=== PATIENT | male | born 1985 | race Caucasian/White ===

== ENCOUNTER 2016-09-14 11:39 | Emergency (ER) | payer OTHER ==
--- NOTE | 2016-09-14 14:13 | DIAGNOSTIC IMAGING REPORT ---
PROCEDURE: XR HAND 3 OR 4 VIEWS - LEFT INDICATION: TRAUMA/INJURY TECHNIQUE: Four views. COMPARISON: None. FINDINGS: Osseous structures, joint spaces, and soft tissues are normal. IMPRESSION: 1. Normal left hand.
--- NOTE | 2016-09-15 02:32 | ED CLINICAL REPORT ---
Clinical Report - Physicians/Mid Levels [facility] [address] [place] [address] 09/14/2016 11:42 Patient: HERMINIA GROSS Time Seen: 13:07 Sep 14 2016; initial documentation. Arrived- By private vehicle. Historian- patient. CPT: ER phys charges level 3 plus (#[id number]). HISTORY OF PRESENT ILLNESS Chief Complaint: Injury to the left middle finger. The injury happened last night. Twisting injury. Occurred at home. ( This occurred last night. ( Pt reports that he dislocated finger last night by getting hand caught between mattress and wall.). He has had swelling, redness and weakness. Put finger back into position.). Patient is experiencing moderate pain. No other injury. REVIEW OF SYSTEMS The patient has had swelling. No tingling, numbness, weakness, foreign body or skin laceration. All systems otherwise negative, except as recorded above. PAST HISTORY Pharyngitis. Muscle Strain, Lower Extremity. Drug Poisoning. Traumatic Brain Injury. Lifestyle / Substance Problems. Abdominal Pain. Substance Abuse. Keratitis. Depression. Immunizations. Chronic Back Pain. Chronic pain. Medications: None. Allergies: None. SOCIAL HISTORY Heavy tobacco smoker (cigarette)- 1 pack per day. Alcohol use. History of drug use: marijuana. ADDITIONAL NOTES The nursing notes have been reviewed. PHYSICAL EXAM Vital Signs: 09/14/2016 11:50 BP: 150/94. HR: 91. RR: 14. O2 saturation: 99%. Temp: 98.2 F. Appearance: Alert. Appears to be in pain. Patient in mild distress. Head: Head atraumatic. Neck: Normal inspection. C-spine non-tender. CVS: Normal heart rate and rhythm. Respiratory: No respiratory distress. Back: No tenderness. Skin: Skin warm. Skin intact. Extremities: Left middle finger: moderate tenderness of the MCP joint; limited movement secondary to pain. Neurovascular intact distally. No erythema, swelling, laceration, abrasion or ecchymosis. No deformity. No subungual hematoma. No wrist injury. Extremities otherwise negative. Neuro, Vascular and Tendons: Vascular status intact. Sensation intact. Motor intact. Tendon function intact. Neuro: Oriented X 3. No motor deficit. No sensory deficit. LABS, X-RAYS, AND EKG X-Rays: Left hand negative. PROGRESS AND PROCEDURES Splint Application: Aluminum-foam splint applied to left middle finger. Splint applied by tech with direct supervision by the ED physician. Reassessed extremity following splint application. Neurovascular intact. Follow-up recommended within 7 days. Patient/family counseled. Disposition: Discharged. Condition: stable. CLINICAL IMPRESSION Left middle finger MCP injury. INSTRUCTIONS Limit use of your left hand until better. Return to work tomorrow, in one day (light duty: wear spint until better.). Warnings: GENERAL WARNINGS: Return or contact your physician immediately if your condition worsens or changes unexpectedly, if not improving as expected, or if other problems arise. Prescription Medications: Hydrocodone/APAP 5mg / 325mg: take 1-2 orally every 6 hours as needed for pain. Dispense ten (10). No refill. Follow-up: Follow up with your doctor in one week. Call for an appointment. Understanding of the discharge instructions verbalized by patient. (Electronically signed by José Manuel Khoury MD 09/14/2016 16:56)
--- NOTE | 2016-09-15 02:32 | ED ORDER SUMMARY ---
..... Patient: MERLY BASILIOTARA HOWELLIC Dar OrderSheet [facility] VisitID: [id number] [address] [place] [address] 30y, M Registration Date/Time: 09/14/2016 ORDER SHEET Weight: 81.6 kg (stated) Allergies: None GENERAL ORDERS: Hand 3 or 4V Left Urgent (12:43 09/14/2016 Efren HURT) (Ack 12:46 KHoerner) (12:54 KHoerner) Splint (UE) (Left) (Metal / foam) (MCP) (13:11 09/14/2016 Efren HURT) (13:14 LNations ER Tech1) MEDICATION ORDERS: IV FLUIDS: ORDER SHEET NOTES: [Electronically signed by Gabby Portillo (13:31 09/14/2016)] [Electronically signed by José Manuel Khoury MD (16:56 09/14/2016)] [Electronically locked/signed by Gabby Portillo (13:31 09/14/2016)]
--- NOTE | 2016-09-15 02:32 | ED CLINICAL REPORT ---
Clinical Report - Physicians/Mid Levels [facility] [address] [place] [address] 09/14/2016 11:42 Patient: HERMINIA GROSS Time Seen: 13:07 Sep 14 2016; initial documentation. Arrived- By private vehicle. Historian- patient. CPT: ER phys charges level 3 plus (#[id number]). HISTORY OF PRESENT ILLNESS Chief Complaint: Injury to the left middle finger. The injury happened last night. Twisting injury. Occurred at home. ( This occurred last night. ( Pt reports that he dislocated finger last night by getting hand caught between mattress and wall.). He has had swelling, redness and weakness. Put finger back into position.). Patient is experiencing moderate pain. No other injury. REVIEW OF SYSTEMS The patient has had swelling. No tingling, numbness, weakness, foreign body or skin laceration. All systems otherwise negative, except as recorded above. PAST HISTORY Pharyngitis. Muscle Strain, Lower Extremity. Drug Poisoning. Traumatic Brain Injury. Lifestyle / Substance Problems. Abdominal Pain. Substance Abuse. Keratitis. Depression. Immunizations. Chronic Back Pain. Chronic pain. Medications: None. Allergies: None. SOCIAL HISTORY Heavy tobacco smoker (cigarette)- 1 pack per day. Alcohol use. History of drug use: marijuana. ADDITIONAL NOTES The nursing notes have been reviewed. PHYSICAL EXAM Vital Signs: 09/14/2016 11:50 BP: 150/94. HR: 91. RR: 14. O2 saturation: 99%. Temp: 98.2 F. Appearance: Alert. Appears to be in pain. Patient in mild distress. Head: Head atraumatic. Neck: Normal inspection. C-spine non-tender. CVS: Normal heart rate and rhythm. Respiratory: No respiratory distress. Back: No tenderness. Skin: Skin warm. Skin intact. Extremities: Left middle finger: moderate tenderness of the MCP joint; limited movement secondary to pain. Neurovascular intact distally. No erythema, swelling, laceration, abrasion or ecchymosis. No deformity. No subungual hematoma. No wrist injury. Extremities otherwise negative. Neuro, Vascular and Tendons: Vascular status intact. Sensation intact. Motor intact. Tendon function intact. Neuro: Oriented X 3. No motor deficit. No sensory deficit. LABS, X-RAYS, AND EKG X-Rays: Left hand negative. PROGRESS AND PROCEDURES Splint Application: Aluminum-foam splint applied to left middle finger. Splint applied by tech with direct supervision by the ED physician. Reassessed extremity following splint application. Neurovascular intact. Follow-up recommended within 7 days. Patient/family counseled. Disposition: Discharged. Condition: stable. CLINICAL IMPRESSION Left middle finger MCP injury. INSTRUCTIONS Limit use of your left hand until better. Return to work tomorrow, in one day (light duty: wear spint until better.). Warnings: GENERAL WARNINGS: Return or contact your physician immediately if your condition worsens or changes unexpectedly, if not improving as expected, or if other problems arise. Prescription Medications: Hydrocodone/APAP 5mg / 325mg: take 1-2 orally every 6 hours as needed for pain. Dispense ten (10). No refill. Follow-up: Follow up with your doctor in one week. Call for an appointment. Understanding of the discharge instructions verbalized by patient. (Electronically signed by José Manuel Khoury MD 09/14/2016 16:56)
--- NOTE | 2016-09-15 02:32 | ED ORDER SUMMARY ---
..... Patient: MERLY BASILIOTARA HOWELLIC Dar OrderSheet [facility] VisitID: [id number] [address] [place] [address] 30y, M Registration Date/Time: 09/14/2016 ORDER SHEET Weight: 81.6 kg (stated) Allergies: None GENERAL ORDERS: Hand 3 or 4V Left Urgent (12:43 09/14/2016 Efren HURT) (Ack 12:46 KHoerner) (12:54 KHoerner) Splint (UE) (Left) (Metal / foam) (MCP) (13:11 09/14/2016 Efren HURT) (13:14 LNations ER Tech1) MEDICATION ORDERS: IV FLUIDS: ORDER SHEET NOTES: [Electronically signed by Gabby Portillo (13:31 09/14/2016)] [Electronically signed by José Manuel Khoury MD (16:56 09/14/2016)] [Electronically locked/signed by Gabby Portillo (13:31 09/14/2016)]
--- NOTE | 2016-09-15 02:32 | ED NURSING NOTES ---
Clinical Report - Nurses [facility] [place] [address] 09/14/2016 11:42 [id number] Triage time 11:47 Sep 14 2016. Acuity: LEVEL 4. Chief Complaint: LEFT UPPER EXTREMITY PAIN and SWELLING. 11:50 09/14/16. Alert. No acute distress. ( Pain at worst 7/10). SEPSIS SCREEN: Sepsis Screen. Negative (no infection suspected/documented). TANG COMA SCORE: [place] Coma Scale: 15- eyes open spontaneously (4); best verbal response- oriented x 4 (5); best motor response- obeys commands (6). --11:51 Gabby Portillo 11:50 09/14/16. BP: 150/94. HR: 91. RR: 14. O2 saturation: 99%. Temp: 98.2 F. Pain level now 3/10. --11:51 Gabby Portillo. Weight: 81.6 kg stated. Height/Length: 76 inches Per Patient. BMI: 21.9. --11:50 Gabby Portillo. Medications None. --11:49 Gabby Portillo. Medication/allergy information source: the patient. --11:51 Gabby Portillo. Allergies None. --11:50 Gabby Portillo. History Arrived by private vehicle. Historian: patient. Unaccompanied. Primary physician ([facility]). Injury occurred. This occurred last night. ( Pt reports that he dislocated finger last night by getting hand caught between mattress and wall.). He has had swelling, redness and weakness. No fever, neck pain, skin rash, itching or numbness. 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 (Pt popped it back in.). PAST MEDICAL HX: Immunizations: up-to-date. SOCIAL HX: Light tobacco smoker (cigarette)- less than 1/2 a pack per day. Occasional alcohol use. History of drug use: marijuana. (every 2-3 days). FALL RISK ASSESSMENT: Fall risk assessment completed. No fall risk identified. NUTRITIONAL RISK ASSESSMENT: The nutritional risk assessment revealed no deficiencies. FUNCTIONAL ASSESSMENT: Functional assessment: no impairments noted. LEARNING NEEDS ASSESSMENT: The learning needs assessment revealed no barriers. SKIN INTEGRITY ASSESSMENT: Skin integrity risk assessment completed. No skin integrity risk identified. --11:51 Gabby Portillo. PROBLEMS: Pharyngitis. Muscle Strain, Lower Extremity. Drug Poisoning. Traumatic Brain Injury. Lifestyle / Substance Problems. Abdominal Pain. Substance Abuse. Keratitis. Depression. Immunizations. Chronic Back Pain. Chronic pain. --11:50 Gabby Portillo. ADDITIONAL SURGERIES: Facial reconstruction. Shoulder Surgery. --11:50 Gabby Portillo. Assessment The patient states feels the same. --11:51 Gabby Portillo. Interventions ID band on patient. --11:51 Gabby Portillo. PHYSICAL ASSESSMENT 11:51 09/14/16. Ambulatory to room. GENERAL / NEURO / PSYCH: Oriented X 4. Alert. Appears in no acute distress. EXTREMITIES: Extremities exhibit normal ROM. Neuro-vascular status intact to the extremity. No upper extremity edema. Left middle finger: tenderness and swelling. SKIN: Skin intact. Skin is warm and dry. --11:51 Gabby Portillo. NURSING PROGRESS NOTES 11:09/14/16. The plan of care for this patient has been created. Extremity elevated. Neuro-vascular extremity check. Reassurance given. Two patient identifiers checked. Call light placed in reach. Side rails up x 1. Bed placed in lowest position. Brakes of bed on. Patient ready for evaluation- chart flagged and ED physician notified. ( Pt states, "it feels like it just didn't set right"). --11:51 Gabby Portillo ( alum. splint to left middle finger, held with coban.). --13:21 Jennie Cuellar ER Tech1. DISPOSITION / DISCHARGE 13:29 09/14/16. Departure time: 13:Sep 14 2016. Condition at departure: improved. The goals identified in the patient's plan of care were met. No learning barriers present. Discharge instructions provided and reviewed with the patient. Reviewed warnings (Patient verbalized understanding of warning signs). Reviewed medication(s) side effects, precautions, dosing and course information. Prescription(s) given to the patient ([place]). Treatments reviewed. Reviewed referral to a primary care physician for followup. Patient verbalized understanding. Written instructions provided in Lao. The patient was discharged by the physician. He was discharged home and unaccompanied at time of discharge. He left the Emergency Department ambulatory and via private vehicle. Patient driving. FALL RISK ASSESSMENT: Fall risk assessment completed. No fall risk identified. --13:29 Gabby Portillo 13:28 09/14/16. BP: 139/87. HR: 95. RR: 14. O2 saturation: 100% on room air. Temp: 98.5 F. Pain level now: 10/17. --13:29 Gabby Portillo. Locked/Released at 09/14/2016 13:31 by Gabby Portillo,
--- NOTE | 2016-09-15 02:32 | ED NURSING NOTES ---
Clinical Report - Nurses [facility] [place] [address] 09/14/2016 11:42 [id number] Triage time 11:47 Sep 14 2016. Acuity: LEVEL 4. Chief Complaint: LEFT UPPER EXTREMITY PAIN and SWELLING. 11:50 09/14/16. Alert. No acute distress. ( Pain at worst 7/10). SEPSIS SCREEN: Sepsis Screen. Negative (no infection suspected/documented). TANG COMA SCORE: [place] Coma Scale: 15- eyes open spontaneously (4); best verbal response- oriented x 4 (5); best motor response- obeys commands (6). --11:51 Gabby Portillo 11:50 09/14/16. BP: 150/94. HR: 91. RR: 14. O2 saturation: 99%. Temp: 98.2 F. Pain level now 3/10. --11:51 Gabby Portillo. Weight: 81.6 kg stated. Height/Length: 76 inches Per Patient. BMI: 21.9. --11:50 Gabby Portillo. Medications None. --11:49 Gabby Portillo. Medication/allergy information source: the patient. --11:51 Gabby Portillo. Allergies None. --11:50 Gabby Portillo. History Arrived by private vehicle. Historian: patient. Unaccompanied. Primary physician ([facility]). Injury occurred. This occurred last night. ( Pt reports that he dislocated finger last night by getting hand caught between mattress and wall.). He has had swelling, redness and weakness. No fever, neck pain, skin rash, itching or numbness. 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 (Pt popped it back in.). PAST MEDICAL HX: Immunizations: up-to-date. SOCIAL HX: Light tobacco smoker (cigarette)- less than 1/2 a pack per day. Occasional alcohol use. History of drug use: marijuana. (every 2-3 days). FALL RISK ASSESSMENT: Fall risk assessment completed. No fall risk identified. NUTRITIONAL RISK ASSESSMENT: The nutritional risk assessment revealed no deficiencies. FUNCTIONAL ASSESSMENT: Functional assessment: no impairments noted. LEARNING NEEDS ASSESSMENT: The learning needs assessment revealed no barriers. SKIN INTEGRITY ASSESSMENT: Skin integrity risk assessment completed. No skin integrity risk identified. --11:51 Gabby Portillo. PROBLEMS: Pharyngitis. Muscle Strain, Lower Extremity. Drug Poisoning. Traumatic Brain Injury. Lifestyle / Substance Problems. Abdominal Pain. Substance Abuse. Keratitis. Depression. Immunizations. Chronic Back Pain. Chronic pain. --11:50 Gabby Portillo. ADDITIONAL SURGERIES: Facial reconstruction. Shoulder Surgery. --11:50 Gabby Portillo. Assessment The patient states feels the same. --11:51 Gabby Portillo. Interventions ID band on patient. --11:51 Gabby Portillo. PHYSICAL ASSESSMENT 11:51 09/14/16. Ambulatory to room. GENERAL / NEURO / PSYCH: Oriented X 4. Alert. Appears in no acute distress. EXTREMITIES: Extremities exhibit normal ROM. Neuro-vascular status intact to the extremity. No upper extremity edema. Left middle finger: tenderness and swelling. SKIN: Skin intact. Skin is warm and dry. --11:51 Gabby Portillo. NURSING PROGRESS NOTES 11:09/14/16. The plan of care for this patient has been created. Extremity elevated. Neuro-vascular extremity check. Reassurance given. Two patient identifiers checked. Call light placed in reach. Side rails up x 1. Bed placed in lowest position. Brakes of bed on. Patient ready for evaluation- chart flagged and ED physician notified. ( Pt states, "it feels like it just didn't set right"). --11:51 Gabby Portillo ( alum. splint to left middle finger, held with coban.). --13:21 Jennie Cuellar ER Tech1. DISPOSITION / DISCHARGE 13:29 09/14/16. Departure time: 13:Sep 14 2016. Condition at departure: improved. The goals identified in the patient's plan of care were met. No learning barriers present. Discharge instructions provided and reviewed with the patient. Reviewed warnings (Patient verbalized understanding of warning signs). Reviewed medication(s) side effects, precautions, dosing and course information. Prescription(s) given to the patient ([place]). Treatments reviewed. Reviewed referral to a primary care physician for followup. Patient verbalized understanding. Written instructions provided in Persian. The patient was discharged by the physician. He was discharged home and unaccompanied at time of discharge. He left the Emergency Department ambulatory and via private vehicle. Patient driving. FALL RISK ASSESSMENT: Fall risk assessment completed. No fall risk identified. --13:29 Gabby Portillo 13:28 09/14/16. BP: 139/87. HR: 95. RR: 14. O2 saturation: 100% on room air. Temp: 98.5 F. Pain level now: 10/17. --13:29 Gabby Portillo. Locked/Released at 09/14/2016 13:31 by Gabby Portillo,
--- NOTE | 2016-09-15 02:35 | ED DISCHARGE INSTRUCTIONS ---
Patient: HERMINIA GROSS General Instructions [facility] VisitID: [id number] [place] [address] 30y, M Registration Date/Time: 09/14/2016 Left middle finger MCP injury. INSTRUCTIONS Limit use of your left hand until better. Return to work tomorrow, in one day (light duty: wear spint until better.). Warnings: GENERAL WARNINGS: Return or contact your physician immediately if your condition worsens or changes unexpectedly, if not improving as expected, or if other problems arise. Prescription Medications: Hydrocodone/APAP 5mg / 325mg: take 1-2 orally every 6 hours as needed for pain. Dispense ten (10). No refill. Follow-up: Follow up with your doctor in one week. Call for an appointment. Understanding of the discharge instructions verbalized by patient. ADDITIONAL INFORMATION Hydrocodone Bitartrate, Acetaminophen Oral tablet What is this medicine? ACETAMINOPHEN; HYDROCODONE (a set a RICARDO ronal fen; augustina droe KOE done) is a pain reliever. It is used to treat mild to moderate pain. How should I use this medicine? Take this medicine by mouth. Swallow it with a full glass of water. Follow the directions on the prescription label. If the medicine upsets your stomach, take the medicine with food or milk. Do not take more than you are told to take. Talk to your washer and crusher tender regarding the use of this medicine in children. This medicine is not approved for use in children. What side effects may I notice from receiving this medicine? Side effects that you should report to your doctor or health health care attorney as soon as possible: allergic reactions like skin rash, itching or hives, swelling of the face, lips, or tongue breathing problems confusion feeling faint or lightheaded, falls stomach pain yellowing of the eyes or skin Side effects that usually do not require medical attention (report to your doctor or health health care attorney if they continue or are bothersome): nausea, vomiting stomach upset What may interact with this medicine? alcohol antihistamines isoniazid medicines for depression, anxiety, or psychotic disturbances medicines for sleep muscle relaxants naltrexone narcotic medicines (opiates) for pain phenobarbital ritonavir tramadol What if I miss a dose? If you miss a dose, take it as soon as you can. If it is almost time for your next dose, take only that dose. Do not take double or extra doses. Where should I keep my medicine? Keep out of the reach of children. This medicine can be abused. Keep your medicine in a safe place to protect it from theft. Do not share this medicine with anyone. Selling or giving away this medicine is dangerous and against the law. Store at room temperature between 15 and 30 degrees C (59 and 86 degrees F). Protect from light. Keep container tightly closed. Throw away any unused medicine after the expiration date. Discard unused medicine and used packaging carefully. Pets and children can be harmed if they find used or lost packages. What should I tell my health care provider before I take this medicine? They need to know if you have any of these conditions: brain tumor Crohn's disease, inflammatory bowel disease, or ulcerative colitis drink more than 3 alcohol-containing drinks per day drug abuse or addiction head injury heart or circulation problems kidney disease or problems going to the bathroom liver disease lung disease, asthma, or breathing problems an unusual or allergic reaction to acetaminophen, hydrocodone, other opioid analgesics, other medicines, foods, dyes, or preservatives or trying to get breast-feeding What should I watch for while using this medicine? Tell your doctor or health health care attorney if your pain does not go away, if it gets worse, or if you have new or a different type of pain. You may develop tolerance to the medicine. Tolerance means that you will need a higher dose of the medicine for pain relief. Tolerance is normal and is expected if you take the medicine for a long time. Do not suddenly stop taking your medicine because you may develop a severe reaction. Your body becomes used to the medicine. This does NOT mean you are addicted. Addiction is a behavior related to getting and using a drug for a non-medical reason. If you have pain, you have a medical reason to take pain medicine. Your doctor will tell you how much medicine to take. If your doctor wants you to stop the medicine, the dose will be slowly lowered over time to avoid any side effects. You may get drowsy or dizzy when you first start taking the medicine or change doses. Do not drive, use machinery, or do anything that may be dangerous until you know how the medicine affects you. Stand or sit up slowly. There are different types of narcotic medicines (opiates) for pain. If you take more than one type at the same time, you may have more side effects. Give your health care provider a list of all medicines you use. Your doctor will tell you how much medicine to take. Do not take more medicine than directed. Call emergency for help if you have problems breathing. The medicine will cause constipation. Try to have a bowel movement at least every 2 to 3 days. If you do not have a bowel movement for 3 days, call your doctor or health health care attorney. Too much acetaminophen can be very dangerous. Do not take Tylenol (acetaminophen) or medicines that contain acetaminophen with this medicine. Many non-prescription medicines contain acetaminophen. Always read the labels carefully. You have been given the following additional information: Hydrocodone Bitartrate, Acetaminophen Oral tablet Limit use of your left hand until better. Return to work tomorrow, in one day (light duty: wear spint until better.). (Electronically signed by José Manuel Khoury MD 09/14/2016 16:56)
--- NOTE | 2016-09-15 02:35 | ED MAR SUMMARY ---
..... Medication Administration Record [facility] [address] [place], [place] [id number] Patient: MERLY CLARITA HERMINIA J Visit ID: [id number] 30y, M Weight: 81.6 kg Height/Length: 76 in BMI: 21.9 ALLERGIES: None
--- NOTE | 2016-09-15 02:35 | ED DISCHARGE INSTRUCTIONS ---
Patient: HERMINIA GROSS General Instructions [facility] VisitID: [id number] [place] [address] 30y, M Registration Date/Time: 09/14/2016 Left middle finger MCP injury. INSTRUCTIONS Limit use of your left hand until better. Return to work tomorrow, in one day (light duty: wear spint until better.). Warnings: GENERAL WARNINGS: Return or contact your physician immediately if your condition worsens or changes unexpectedly, if not improving as expected, or if other problems arise. Prescription Medications: Hydrocodone/APAP 5mg / 325mg: take 1-2 orally every 6 hours as needed for pain. Dispense ten (10). No refill. Follow-up: Follow up with your doctor in one week. Call for an appointment. Understanding of the discharge instructions verbalized by patient. ADDITIONAL INFORMATION Hydrocodone Bitartrate, Acetaminophen Oral tablet What is this medicine? ACETAMINOPHEN; HYDROCODONE (a set a RICARDO ronal fen; augustina droe KOE done) is a pain reliever. It is used to treat mild to moderate pain. How should I use this medicine? Take this medicine by mouth. Swallow it with a full glass of water. Follow the directions on the prescription label. If the medicine upsets your stomach, take the medicine with food or milk. Do not take more than you are told to take. Talk to your junior database administrator regarding the use of this medicine in children. This medicine is not approved for use in children. What side effects may I notice from receiving this medicine? Side effects that you should report to your doctor or health occasional caregiver as soon as possible: allergic reactions like skin rash, itching or hives, swelling of the face, lips, or tongue breathing problems confusion feeling faint or lightheaded, falls stomach pain yellowing of the eyes or skin Side effects that usually do not require medical attention (report to your doctor or health occasional caregiver if they continue or are bothersome): nausea, vomiting stomach upset What may interact with this medicine? alcohol antihistamines isoniazid medicines for depression, anxiety, or psychotic disturbances medicines for sleep muscle relaxants naltrexone narcotic medicines (opiates) for pain phenobarbital ritonavir tramadol What if I miss a dose? If you miss a dose, take it as soon as you can. If it is almost time for your next dose, take only that dose. Do not take double or extra doses. Where should I keep my medicine? Keep out of the reach of children. This medicine can be abused. Keep your medicine in a safe place to protect it from theft. Do not share this medicine with anyone. Selling or giving away this medicine is dangerous and against the law. Store at room temperature between 15 and 30 degrees C (59 and 86 degrees F). Protect from light. Keep container tightly closed. Throw away any unused medicine after the expiration date. Discard unused medicine and used packaging carefully. Pets and children can be harmed if they find used or lost packages. What should I tell my health care provider before I take this medicine? They need to know if you have any of these conditions: brain tumor Crohn's disease, inflammatory bowel disease, or ulcerative colitis drink more than 3 alcohol-containing drinks per day drug abuse or addiction head injury heart or circulation problems kidney disease or problems going to the bathroom liver disease lung disease, asthma, or breathing problems an unusual or allergic reaction to acetaminophen, hydrocodone, other opioid analgesics, other medicines, foods, dyes, or preservatives or trying to get breast-feeding What should I watch for while using this medicine? Tell your doctor or health occasional caregiver if your pain does not go away, if it gets worse, or if you have new or a different type of pain. You may develop tolerance to the medicine. Tolerance means that you will need a higher dose of the medicine for pain relief. Tolerance is normal and is expected if you take the medicine for a long time. Do not suddenly stop taking your medicine because you may develop a severe reaction. Your body becomes used to the medicine. This does NOT mean you are addicted. Addiction is a behavior related to getting and using a drug for a non-medical reason. If you have pain, you have a medical reason to take pain medicine. Your doctor will tell you how much medicine to take. If your doctor wants you to stop the medicine, the dose will be slowly lowered over time to avoid any side effects. You may get drowsy or dizzy when you first start taking the medicine or change doses. Do not drive, use machinery, or do anything that may be dangerous until you know how the medicine affects you. Stand or sit up slowly. There are different types of narcotic medicines (opiates) for pain. If you take more than one type at the same time, you may have more side effects. Give your health care provider a list of all medicines you use. Your doctor will tell you how much medicine to take. Do not take more medicine than directed. Call emergency for help if you have problems breathing. The medicine will cause constipation. Try to have a bowel movement at least every 2 to 3 days. If you do not have a bowel movement for 3 days, call your doctor or health occasional caregiver. Too much acetaminophen can be very dangerous. Do not take Tylenol (acetaminophen) or medicines that contain acetaminophen with this medicine. Many non-prescription medicines contain acetaminophen. Always read the labels carefully. You have been given the following additional information: Hydrocodone Bitartrate, Acetaminophen Oral tablet Limit use of your left hand until better. Return to work tomorrow, in one day (light duty: wear spint until better.). (Electronically signed by José Manuel Khoury MD 09/14/2016 16:56)
--- NOTE | 2016-09-15 02:35 | ED MED RECONCILIATION SUMMARY ---
Patient: MERLY PRAFULTARA HOWELLIC Dar Medication Reconciliation Report [facility] VisitID: [id number] [address] [place] [address] 30y, M Registration Date/Time: 09/14/2016 Weight: 81.6 kg Height/Length: 76 in. BMI: 21.9 ALLERGIES: None The patient's Home Medications are listed below: NONE. The source(s) of the original Home Medication information: patient The following Medications were given to the patient in the Emergency Department: None. The following Medications were prescribed to the patient: Hydrocodone/APAP 5mg / 325mg: take 1-2 orally every 6 hours as needed for pain. Dispense ten (10). No refill. -- José Manuel Khoury MD
--- NOTE | 2016-09-15 02:35 | ED MED RECONCILIATION SUMMARY ---
Patient: MERLY PRAFULTARA HOWELLIC Dar Medication Reconciliation Report [facility] VisitID: [id number] [address] [place] [address] 30y, M Registration Date/Time: 09/14/2016 Weight: 81.6 kg Height/Length: 76 in. BMI: 21.9 ALLERGIES: None The patient's Home Medications are listed below: NONE. The source(s) of the original Home Medication information: patient The following Medications were given to the patient in the Emergency Department: None. The following Medications were prescribed to the patient: Hydrocodone/APAP 5mg / 325mg: take 1-2 orally every 6 hours as needed for pain. Dispense ten (10). No refill. -- José Manuel Khoury MD
--- NOTE | 2016-09-15 02:35 | ED MAR SUMMARY ---
..... Medication Administration Record [facility] [address] [place], [place] [id number] Patient: MERLY CLARITA HERMINIA J Visit ID: [id number] 30y, M Weight: 81.6 kg Height/Length: 76 in BMI: 21.9 ALLERGIES: None
== END 2016-09-14 13:22 | disposition home or self-care (01) ==
LOC: ED SRH 11:39
DX: S69.82XA Other specified injuries of left wrist, hand and finger(s), initial encounter (principal); W23.1XXA Caught, crushed, jammed, or pinched between stationary objects, initial encounter; Y93.89 Activity, other specified; Y92.009 Unspecified place in unspecified non-institutional (private) residence as the place of occurrence of the external cause; Y99.9 Unspecified external cause status; F17.210 Nicotine dependence, cigarettes, uncomplicated